=== PATIENT | male | born 1995 | race African-American/Black ===

== ENCOUNTER 2020-02-05 23:33 | Emergency (ER) | payer OTHER ==
[2020-02-05] MEDS ORDERED: Adacel (T-DAP) 0.5 ML SYRINGE ONE (23:41)
[2020-02-05] MEDS ORDERED: Clindamycin/D5W 600 mg/50 ml Premix Bag ONE (23:41)
[2020-02-06] MEDS ORDERED: Ondansetron PF 4 MG/2 ML Vial ONE
[2020-02-06 00:10] LABS: Band 6 % (5-11); Hemoglobin 14.5 g/dL (14.0-18.0); Lymphocytes 34 % (21-51); MDiff Complete? YES; Mean Corpuscular HGB CONC 34.1 g/dL (32.0-36.0); Mean Corpuscular Hemoglobin 30.9 pg (27.0-31.0); Mean Corpuscular Volume 90.6 fL (78.0-98.0); Monocytes 8 % (0-10); Neutrophil 52 % (42-75); Platelet Count 312 thou/uL (130-400); Red Blood Cell (RBC) Count 4.69 mill/uL (4.70-6.10)
[2020-02-06 00:11] LABS: ALT (SGPT) 22 U/L (8-55); AST (SGOT) 35 U/L (5-34); Alcohol 25 mg/dL (Less than 10); Alkaline Phosphatase 68 U/L (40-110); Anion Gap 19 mmol/L (10-20); BUN (Urea Nitrogen) 14 mg/dL (8.9-20.6); Bilirubin, Total 0.3 mg/dL (0.2-1.2); Calc. Creatinine Clearance 0 mL/min (70-130); Calcium 8.9 mg/dL (7.8-10.44); Carbon Dioxide 16 mmol/L (22-29); Chloride 106 mmol/L (98-107); Estimated GFR-MDRD 85; Globulin 3.6 g/dL (2.4-3.5); Glucose 173 mg/dL (70-105); Protein, Total 7.6 g/dL (6.0-8.3); Sodium 137 mmol/L (136-145)
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
[2020-02-06] MEDS ORDERED: Morphine 4 MG/ML VIAL ONE ×2 (01:23)
[2020-02-06] MEDS ORDERED: Ketamine 50 MG/ML (10ML VIAL) ONE (02:26)
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
== END 2020-02-06 02:50 | disposition short-term general hospital (02) ==
LOC: ERS 23:33
DX: S92.311B Displaced fracture of first metatarsal bone, right foot, initial encounter for open fracture (principal); S63.064A Dislocation of metacarpal (bone), proximal end of right hand, initial encounter; V86.69XA Passenger of other special all-terrain or other off-road motor vehicle injured in nontraffic accident, initial encounter
CPT/HCPCS: 36415; 70450; 72125; 80053; 80307; 83605; 85025; 86850; 86900; 86901; 90715; 93005; 94760; G0390; J2270; J2405; J3490

== ENCOUNTER 2023-07-25 18:36 | Emergency (ER) | payer SELFPAY ==
[2023-07-25 20:31] LABS: SARS-CoV-2 NAA Rapid Test Not Detected (NotDetected)
== END 2023-07-25 21:16 | disposition home or self-care (01) ==
LOC: ERS 18:36
DX: J06.9 Acute upper respiratory infection, unspecified (principal); F17.210 Nicotine dependence, cigarettes, uncomplicated
CPT/HCPCS: 71045